=== PATIENT | male | born 1980 | race American Indian/Alaskan Native ===

== ENCOUNTER 2017-04-05 16:23 | Inpatient (IN) | payer OTHER ==
[2017-04-05 17:08] LABS: Basophils % (Auto) 0.9 % (0.0-1.8); Eosinophils % (Auto) 2.1 % (0.0-4.3); Hematocrit 42.6 % (35.5-45.6); Hemoglobin 14.3 gm/dl (11.8-15.2); Mean Corpuscular HGB Conc 34 % (32-34); Mean Corpuscular Hemoglobin 30 pg (28-32); Mean Corpuscular Volume 88 fl (84-94); Platelet Count 258 K/mm3 (140-440); Red Blood Count 4.86 M/mm3 (3.65-5.03); Red Cell Distribution Width 13.3 % (13.2-15.2)
[2017-04-05 17:19] LABS: INR 0.94 (0.87-1.13)
[2017-04-05 17:20] LABS: Partial Thromboplastin Time 31.8 Sec. (24.2-36.6)
[2017-04-05 17:24] LABS: Anion Gap 18 mmol/L; BUN/Creatinine Ratio 18.75; Blood Urea Nitrogen 15 mg/dL (9-20); Calcium 8.8 mg/dL (8.4-10.2); Carbon Dioxide 25 mmol/L (22-30); Chloride 102.3 mmol/L (98-107); Glucose 89 mg/dL (75-100); Potassium 3.8 mmol/L (3.6-5.0); Sodium 141 mmol/L (137-145)
--- NOTE | 2017-04-05 17:43 | Cat Scan Report ---
FINAL REPORT PROCEDURE: CT HEAD/BRAIN WO CON TECHNIQUE: Computerized tomography of the head was performed without contrast material. HISTORY: neuro deficits \T\lt; 6hrs or sx present upon awakening COMPARISON: No prior studies are available for comparison. FINDINGS: Brain: Brain density appears normal. No evidence of intracranial hemorrhage. No parenchymal hemorrhage, mass lesions or mass effect are seen. No abnormal extraxial fluid collects or masses are seen. Ventricles: Ventricles are normal size and are midline. Bone Windows: No evidence of skull fracture. Paranasal sinuses: Clear Mastoid air cells: Clear IMPRESSION: Negative exam. No acute or focal abnormalities are identified. If clinically indicated MRI of the brain could be obtained for further evaluation.
--- NOTE | 2017-04-05 23:49 | Emergency Department Report ---
ED Neuro Deficit HPI - General Chief Complaint: Neuro Symptoms/Deficit Stated Complaint: LEFT SIDE WEAKNESS Time Seen by Provider: 04/05/17 23:48 Source: patient, RN notes reviewed Mode of arrival: Ambulatory Limitations: No Limitations - History of Present Illness Initial Comments: This is a 36-year-old male. He is previously known to me. He is left-hand dominant. He recently moved here from [place]. His only medical history is tobacco consumption. He denies other medical history. The patient presents to the ER with concern that he woke up with a stroke. He reports that yesterday morning, he woke up with left-sided weakness and numbness in his arm and his leg. The symptoms are constant. They do not have any exacerbating or relieving factors. There is no midline neck pain, there is no chest pain, there is no abdominal pain, there is no bladder or bowel retention or incontinence. There is no saddle anesthesia. No visual disturbance. -: Gradual Location: left arm, right arm Presenting Symptoms: Present: Weak/Paralyzed One Side History of same: No Place: home Severity: moderate Quality: weak, tingling, constant Improves With: none Worsens With: none On Anticoagulants: No Context: gradual onset (patient woke up with symptoms yesterday) Associated Symptoms: denies other symptoms Treatments Prior to Arrival: none - Related Data Home Medications: Previous Rx's Medication Instructions Recorded Last Taken Type Prednisone [predniSONE 10 mg 10 mg PO .TAPER #1 tab.ds.pk 04/09/17 Unknown Rx (6-Day Pack, 21 Tabs)] Allergies/Adverse Reactions: Allergies Allergy/AdvReac Type Severity Reaction Status Date / Time No Known Allergies Allergy Verified 04/05/17 16:39 ED Review of Systems ROS: Stated complaint: LEFT SIDE WEAKNESS Other details as noted in HPI Constitutional: denies: fever, malaise Eyes: denies: vision change ENT: denies: epistaxis Respiratory: denies: cough Cardiovascular: denies: chest pain Gastrointestinal: denies: abdominal pain Genitourinary: denies: dysuria Musculoskeletal: denies: myalgia Skin: denies: lesions Neurological: weakness. denies: abnormal gait ED Past Medical Hx - Past Medical History Previous Medical History?: No - Social History Smoking Status: Current Every Day Smoker Substance Use Type: None - Medications Home Medications: Home Medications Medication Instructions Recorded Confirmed Last Taken Type Prednisone [predniSONE 10 mg 10 mg PO .TAPER #1 tab.ds.pk 04/09/17 Unknown Rx (6-Day Pack, 21 Tabs)] ED Neuro Physical Exam - General Limitations: No Limitations General appearance: alert, in no apparent distress Suspected Stroke: Yes - Head Head exam: Present: atraumatic, normocephalic - Eye Eye exam: Present: normal appearance, PERRL, EOMI, other (visual acuity intact to finger counting, color perception, reading at a close distance). Absent: nystagmus - ENT ENT exam: Present: normal exam, normal orophraynx, mucous membranes moist, normal external ear exam, other (there is no carotid bruit. There is no midline cervical spine tenderness.) - Neck Neck exam: Present: normal inspection, full ROM. Absent: tenderness, meningismus - Respiratory Respiratory exam: Present: normal lung sounds bilaterally. Absent: respiratory distress, wheezes, rales, rhonchi, stridor, chest wall tenderness, accessory muscle use, decreased breath sounds, prolonged expiratory - Cardiovascular Cardiovascular Exam: Present: regular rate, normal rhythm, normal heart sounds. Absent: bradycardia, tachycardia, irregular rhythm, systolic murmur, diastolic murmur, rubs, gallop - GI/Abdominal GI/Abdominal exam: Present: soft, normal bowel sounds. Absent: distended, tenderness, guarding, rebound, rigid, pulsatile mass - Rectal Rectal exam: Present: deferred - Extremities Exam Extremities exam: Present: normal inspection, full ROM, normal capillary refill. Absent: tenderness, pedal edema, joint swelling, calf tenderness - Back Exam Back exam: Present: normal inspection, full ROM. Absent: tenderness, CVA tenderness (R), CVA tenderness (L), muscle spasm, paraspinal tenderness, vertebral tenderness - Neurological Exam Neurological exam: Present: alert, oriented X3, normal gait, motor sensory deficit (there is decreased sensation to light touch and pinprick in the left upper extremity and left lower extremity. Proprioception is intact in the bilateral upper and lower extremity's.), reflexes normal (2+ biceps, triceps, brachioradialis, quadriceps reflexes in the bilateral upper and lower extremities.), other (downgoing plantar reflexes noted bilaterally.) - NIHSS Assessment Interval: Baseline 1a. Level of Consciousness: alert 1b. LOC Questions: answers correctly 1c. LOC Commands: performs tasks correctly 2. Best Gaze: normal 3. Visual: no visual loss 4. Facial Palsy: normal symmetrical movement 5b. Motor Arm Right: no drift 5a. Motor Arm Left: no drift 6a. Motor Leg Left: no drift 6b. Motor Leg Right: no drift 7. Limb Ataxia: absent 8. Sensory: mild/moderate sensory loss 9. Best Language: no aphasia 10. Dysarthria: normal 11. Extinction/Inattention: no abnormality Total Score: 1 Stroke Severity: Minor Stroke - Psychiatric Psychiatric exam: Present: normal affect, normal mood - Skin Skin exam: Present: warm, dry, intact, normal color. Absent: rash ED Course Vital Signs 04/05/17 04/05/17 04/05/17 16:39 21:08 21:30 Temperature 98.5 F Pulse Rate 62 56 L 53 L Respiratory 18 17 20 Rate Blood Pressure 126/90 120/83 O2 Sat by Pulse 100 99 99 Oximetry 04/05/17 04/05/17 04/05/17 22:00 22:30 22:43 Temperature Pulse Rate 55 L 54 L Respiratory 20 20 19 Rate Blood Pressure 119/79 120/79 O2 Sat by Pulse 97 98 99 Oximetry 04/05/17 04/05/17 04/05/17 23:00 23:20 23:30 Temperature Pulse Rate 53 L 53 L 57 L Respiratory 17 14 14 Rate Blood Pressure 126/89 115/89 115/85 O2 Sat by Pulse 95 96 95 Oximetry 04/06/17 04/06/17 04/06/17 00:46 01:00 01:30 Temperature Pulse Rate 50 L 54 L Respiratory 15 18 16 Rate Blood Pressure 115/85 123/87 109/68 O2 Sat by Pulse 98 95 96 Oximetry 04/06/17 02:00 Temperature Pulse Rate 54 L Respiratory 15 Rate Blood Pressure 99/58 O2 Sat by Pulse 96 Oximetry - Lab Data Result diagrams: 04/05/17 16:54 04/05/17 16:54 Lab Results 04/05/17 04/05/17 04/05/17 Range/Units 16:54 16:54 16:54 WBC 6.0 (4.5-11.0) K/mm3 RBC 4.86 (3.65-5.03) M/mm3 Hgb 14.3 (11.8-15.2) gm/dl Hct 42.6 (35.5-45.6) % MCV 88 (84-94) fl MCH 30 (28-32) pg MCHC 34 (32-34) % RDW 13.3 (13.2-15.2) % Plt Count 258 (140-440) K/mm3 Lymph % (Auto) 34.5 (13.4-35.0) % [place] % (Auto) 10.6 H (0.0-7.3) % Eos % (Auto) 2.1 (0.0-4.3) % Baso % (Auto) 0.9 (0.0-1.8) % Lymph # 2.1 (1.2-5.4) K/mm3 [place] # 0.6 (0.0-0.8) K/mm3 Eos # 0.1 (0.0-0.4) K/mm3 Baso # 0.1 (0.0-0.1) K/mm3 Seg Neutrophils % 51.9 (40.0-70.0) % Seg Neutrophils # 3.1 (1.8-7.7) K/mm3 PT 13.0 (12.2-14.9) Sec. INR 0.94 (0.87-1.13) APTT 31.8 (24.2-36.6) Sec. Thrombin Time (15.1-19.6) Sec. Sodium 141 (137-145) mmol/L Potassium 3.8 (3.6-5.0) mmol/L Chloride 102.3 (98-107) mmol/L Carbon Dioxide 25 (22-30) mmol/L Anion Gap 18 mmol/L BUN 15 (9-20) mg/dL Creatinine 0.8 (0.8-1.5) mg/dL Estimated GFR > 60 ml/min BUN/Creatinine Ratio 18.75 % Glucose 89 (75-100) mg/dL POC Glucose (70-105) Calcium 8.8 (8.4-10.2) mg/dL Troponin T < 0.010 (0.00-0.029) ng/mL 04/05/17 04/05/17 Range/Units 16:54 23:26 WBC (4.5-11.0) K/mm3 RBC (3.65-5.03) M/mm3 Hgb (11.8-15.2) gm/dl Hct (35.5-45.6) % MCV (84-94) fl MCH (28-32) pg MCHC (32-34) % RDW (13.2-15.2) % Plt Count (140-440) K/mm3 Lymph % (Auto) (13.4-35.0) % [place] % (Auto) (0.0-7.3) % Eos % (Auto) (0.0-4.3) % Baso % (Auto) (0.0-1.8) % Lymph # (1.2-5.4) K/mm3 [place] # (0.0-0.8) K/mm3 Eos # (0.0-0.4) K/mm3 Baso # (0.0-0.1) K/mm3 Seg Neutrophils % (40.0-70.0) % Seg Neutrophils # (1.8-7.7) K/mm3 PT (12.2-14.9) Sec. INR (0.87-1.13) APTT (24.2-36.6) Sec. Thrombin Time 17.2 (15.1-19.6) Sec. Sodium (137-145) mmol/L Potassium (3.6-5.0) mmol/L Chloride (98-107) mmol/L Carbon Dioxide (22-30) mmol/L Anion Gap mmol/L BUN (9-20) mg/dL Creatinine (0.8-1.5) mg/dL Estimated GFR ml/min BUN/Creatinine Ratio % Glucose (75-100) mg/dL POC Glucose 79 (70-105) Calcium (8.4-10.2) mg/dL Troponin T (0.00-0.029) ng/mL - EKG Data -: EKG Interpreted by [place] EKG shows normal: sinus rhythm, axis, intervals Rate: bradycardia When compared to previous EKG there are: previous EKG unavailable 04/06/17 01:08 sinus bradycardia, 50 bpm, normal intervals, normal axis, incomplete right bundle branch block, not morphologically consistent with STEMI. There is no prior for comparison. - Radiology Data Radiology results: report reviewed, image reviewed Noncontrast CT scan of the brain is negative for acute disease - Medical Decision Making Differential diagnosis: Stroke, cervical radiculopathy, multiple sclerosis assessment and plan: 36-year-old male who woke up yesterday with left-sided subjective weakness and numbness. He has a GCS of 15, with an NIH score of 1. Patient woke up with symptoms, therefore he is not a TPA candidate. Reflexes, strength intact, walks with a steady gait, very unlikely to be epidural compression syndrome. Patient given aspirin, he declines pain medication, case is presented to the Hospital physician, Dr. Eduardo, who accepts the patient to her service. - Core Measures Measure Exclusions: not indicated - Thrombolytic Inclusion/Exclusion Thrombolytic Exclusion Criteria: Symptom Onset > 3 Hours Critical care attestation.: If time is entered above; I have spent that time in minutes in the direct care of this critically ill patient, excluding procedure time. ED Disposition Clinical Impression: Left sided numbness Disposition: [id number] OP ADMIT IP TO THIS HOSP Is pt being admited?: Yes Does the pt Need Aspirin: Yes Condition: Good
[2017-04-06] MEDS ORDERED: BABY ASPIRIN PO ONE
[2017-04-06] MEDS ORDERED: ZOFRAN IV PRN (00:38)
[2017-04-06] MEDS ORDERED: SODIUM CHLORIDE FLUSH SYRINGE 10 ML IV PRN (00:38)
[2017-04-06] MEDS ORDERED: DULCOLAX PR PRN (00:38)
[2017-04-06] MEDS ORDERED: TYLENOL PO PRN (00:38)
[2017-04-06] MEDS ORDERED: MILK OF MAGNESIA PO PRN (00:38)
--- NOTE | 2017-04-06 00:38 | History and Physical Report ---
History of Present Illness Date of examination: 04/06/17 History of present illness: 36-year-old man with no medical problems comes emergency room because he developed left-sided paresthesia and weakness at 4 AM. His symptoms still persistent Review of systems Constitutional: no fever, no chills, no weight loss Ears, eyes, nose, mouth and throat: no nasal congestion, no nasal discharge, no sinus pressure, no vision change, no red eye. Neck: No neck pain or rigidity. Cardiovascular: chest pain, no orthopnea, no palpitations, no leg swelling Respiratory: No shortness of breath, no cough, no congestion, no wheezing Gastrointestinal: abdominal pain, hematochezia, no nausea, no vomiting Genitourinary : no dysuria, frequency , no hematuria Musculoskeletal: no joint swelling or muscle ache Integumentary: no rash, no pruritis Neurological:slurred speecg Endocrine: no cold or heat intolerance, no polyuria or polydipsia Hematologic/Lymphatic: no easy bruising, no easy bleeding, no gland swelling Allergic/Immunologic: no urticaria, no angioedema. PAST MEDICAL HISTORY:None PAST SURGICAL HISTORY:None FAMILY HISTORY:hypertension SOCIAL HISTORY: Smoke a pack a week, no alcohol or drug Medications and Allergies Allergies Allergy/AdvReac Type Severity Reaction Status Date / Time No Known Allergies Allergy Verified 04/05/17 16:39 Home Medications Medication Instructions Recorded Confirmed Last Taken Type No Known Home Medications [No 04/05/17 04/05/17 Unknown History Reported Home Medications] Exam - Physical Exam Narrative exam: Gen. appearance: Patient lying in bed, no apparent distress HEENT: Normocephalic, atraumatic, pupils equally round and reactive to light, extraocular movement intact, and no sclericterus,. No JVD or thyromegaly or nodule,neck supple, no carotid bruit ,mucous membranes moist, no exudate or erythema Heart: S1, S2, regular rate and rhythm Lungs: Clear to auscultation bilaterally, breathing comfortable Abdomen: Positive bowel sounds, nontender, nondistended, no organomegaly Extremity: No edema, cyanosis, clubbing Skin: No rash, nodules, warm, dry Neuro: Oriented 3, cranial nerves II-12 intact, speech is fluent, motor 4/5 on LUE, otherwise normal, decrease sensation in LUE - Constitutional Vitals: Temp Pulse Resp BP Pulse Ox 98.5 F 57 L 14 115/85 95 04/05/17 16:39 04/05/17 23:30 04/05/17 23:30 04/05/17 23:30 04/05/17 23:30 Results - Labs CBC & Chem 7: 04/05/17 16:54 04/05/17 16:54 Labs: Abnormal lab results 04/05/17 Range/Units 16:54 [place] % (Auto) 10.6 H (0.0-7.3) % - Imaging and Cardiology CT Scan - head: report reviewed Assessment and Plan Assessment Left-sided paresthesia with weakness, rule out multiple sclerosis, CVA less likely Plan Admit to medicine Do neurochecks, swallow screen Obtain MRI of the head, carotid Doppler, consult neurology Start aspirin, statin, check lipid profile Start DVT prophylaxis
[2017-04-06 01:46] LABS: Creatine Kinase 134 units/L (55-170)
[2017-04-06 01:49] LABS: Creatine Kinase MB < 1.0 ng/mL (0.0-4.0)
--- NOTE | 2017-04-06 02:05 | Admit Criteria Form ---
Admission Criteria Documentation: NEUROLOGY GRG Clinical Indications for Admission to Inpatient Care (Place ' X' for any and all applicable criteria): Hospital admission is needed for appropriate care of the patient because of 1 or more of the following: [ ]I. Encephalitis [ ]II. Severe [employer] infections indicated by 1 or more of the following(1)(2)(3) : [ ]a) Intracranial abscess [ ]b) Spinal abscess or myelitis [ ]c) Tuberculous or other nonbacterial, nonviral [employer] infection(8) [ ]III. Vasculitis and 1 or more of the following(14)(15): []a) Altered mental status that is severe or persistent or other acute neurologic change []b) Psychosis []c) Seizure [ ]IV. Status epilepticus or repetitive seizures not controlled with emergent treatment [A] (7)(8) [ ]V. Altered mental status that is severe or persistent [ ]. Transient alteration in consciousness with high-risk etiology; examples include (12)(13): [ ]a) Cardiovascular source [ ]b) Cataplexy [ ]VII. Cerebral aneurysm requiring ANY ONE of the following(14): [ ]a) IV antihypertensives or vasoactive agents [ ]b) Sedation and analgesia for suspected leak [ ]c) Need for external ventricular drainage and cerebral perfusion pressure monitoring [ ]d) Emergent evaluation to determine need for surgical clipping or endovascular coiling by interventional radiology. If surgery is required ( Also use Craniotomy, Supratentorial, for Surgery of Bleeding Intracranial Aneurysm (for bleeding aneurysm) or Craniotomy, Supratentorial (for nonbleeding aneurysm) as appropriate. [X ]VIII. New-onset severe neurologic symptom requiring inpatient care indicated by ANY ONE of the following: [ ]a) Aphasia(15) [ ]b) Weakness (grade 3 or less) [ ]c) Paralysis (eg, hemiplegia) [ ]d) Spasticity(16) [ ]e) Dystonia [ ]e) Ataxia(17) [ ]f) Amnesia(18) [ ]g) Involuntary movements(19) [ ]h) Vertigo [ ] Visual loss [ X]i) Other severe neurologic finding (eg, papilledema, mass effect on imaging, myoclonus not treatable at alternative level of care (eg, observation care) [ ]IX. Guillain-[place] syndrome(20) [ ]X. Myasthenia gravis crisis or inpatient monitoring need as indicated by 1 or more of the following(21): [ ]a) Intensive treatment (eg, course of plasmapheresis) with inadequate outpatient situation to monitor patients status [ ]b) Inadequate airway protection [ ]c) Respiratory insufficiency requiring intubation or inpatient. monitoring [ ]d) Progressive dysphagia with failure to thrive [ ]XI. Multiple sclerosis or other acute demyelinating disease requiring inpatient care as indicated by 1 or more of the following (22)(23): [ ]a) Acute severe deterioration requiring inpatient treatment (eg, IV steroids, plasmapheresis, close observation) [ ]b) Acute complication requiring inpatient care (eg, sepsis, severe decubitus, aspiration) [ ]XII.Parkinson disease requiring inpatient care (Also use Optimal Recovery Care Criteria or General Recovery Criteria as appropriate) indicated by 1 or more of the following(25): [ ]a) Infection (eg, aspiration pneumonia) not treatable at alternative level of care [ ]b Dehydration that is severe or persistent [ ]c) Life-threatening agitation or psychotic behavior not treatable on emergency, observation care, or alternative level (eg, residential) basis [ ]d) Severe medication withdrawal effects (eg, freezing, neuroleptic malignant syndrome) not responsive to emergency and observation care treatment ( as appropriate) [ ]e) Other severe manifestation not treatable at alternative level of care [ ]XII. Amyotrophic lateral sclerosis with inpatient care needs as indicated by ANY ONE of the following(26): [ ]a) Acute complications (eg, aspiration pneumonia, sepsis ) requiring inpatient care ( see other optimal Recovery Guideline as appropriate) [ ]b) Dehydration that is severe persistent AND artificial support desired [ ]c) Inadequate airway protection AND artificial support desired [ ]d) Severe ventilatory insufficiency AND artificial support desired [ ]XIII. Myasthenia gravis crisis or inpatient monitoring need as indicated by 1 or more of the following(21): [] a) Inadequate airway protection []b) Respiratory insufficiency requiring intubation or inpatient monitoring []c) Progressive dysphagia with failure to thrive []d) Intensive treatment (e.g., course of plasmapheresis) with inadequate outpatient situation to monitor patients status [ ]XIV. Multiple sclerosis or other acute demyelinating disease requiring inpatient care indicated by 1 or more of the following[C](36)(43)(44)(45)(46): []a) Acute severe deterioration requiring inpatient treatment (eg, IV steroids, plasmapheresis, close observation) []b) Acute complication requiring inpatient care (eg, sepsis, severe decubitus, aspiration) [ ]XV. Intracranial hypertension (e.g., pseudotumor cerebri) requiring inpatient care (e.g., acute visual loss, inadequate oral intake) (47)(48)(49) [ ]XVI. Parkinson disease requiring inpatient care (Also use Optimal Recovery Care Criteria or General Recovery Criteria as appropriate) indicated by 1 or more of the following(25): [] a) Infection (e.g., aspiration pneumonia) not treatable at alternative level of care []b) Volume depletion not responsive to emergency and observation care treatment (as appropriate) []c) Life-threatening agitation or psychotic behavior not treatable on emergency, observation care, or alternative level (e.g., residential) basis []d) Severe medication withdrawal effects (e.g., freezing, neuroleptic malignant syndrome) not responsive to emergency and observation care treatment (as appropriate) []e) Other severe manifestation not treatable at alternative level of care [ ]XVII. Amyotrophic lateral sclerosis with inpatient care needs as indicated by1 or more of the following(42): []a) Acute complications (eg, aspiration pneumonia, sepsis) requiring inpatient care (see other Optimal Recovery Guideline or General Recovery Guideline as appropriate) []b) Dehydration that is severe or persistent AND artificial support desired []c) Inadequate airway protection AND artificial support desired []d) Severe ventilatory insufficiency AND artificial support desired [ ]XVIII. Severe myopathy, neuropathy, or other neuromuscular disease indicated by 1 or more of the following(42)(52)(53)(54): []a ) New-onset severe diffuse weakness (eg, strength 3/5 or less) []b) Severe dysphagia []c) Dyspnea at rest or with minimal exertion (new) []d) Inadequate airway protection []e) Inadequate ventilation indicated by 1 or more of the following : i) Partial pressure of carbon dioxide greater than 44 mm Hg ( 5.9 kPa) (new) ii) Reduced peak expiratory flow rate (new) iii) Vital capacity less than 50% of predicted (less than 15 mL/kg) iv) Peak inspiratory force less negative than -30 cm H2O (- 2942 Pa) [ ]XVII.Complications of congenital or degenerative disease (eg, infection, seizures, dehydration, injury) not responsive to emergency and observation care treatment (as appropriate ) [C](16)(29)(30) [ ]XVIII.Suspected or confirmed nerve or muscle toxic injury, including ANY ONE of the following: [ ]a) Rhabdomyolysis(31) i) Acute renal failure ii) Dehydration that is severe or persistent iii) Altered mental status that is severe or persistent iv) Electrolyte abnormality that remains after emergency or observation level care ( as appropriate) [ ]b) Botulism(32) [ ]c) Other severe toxin-induced sign or symptom [ ]XIX. Neurologic trauma requiring inpatient treatment (medical) indicated by ANY ONE of the following(33)(34): [ ]a) Vital signs or neurologic signs more frequently than every 4 hours [ ]b) Hyperosmolar therapy [ ]c) Respiratory monitoring [ ]d) Intracranial pressure monitoring and treatment [ ]e) Stabilization and immobilization device placement (eg, braces, body jacket) [ ]f) Intubation & mechanical ventilation for airway protection or therapeutic hyperventilation [ ]g) Other treatment or monitoring needed that requires inpatient level of care [ ]XX.Complications of neurologic devices (eg, ventricular shunt, neurostimulator) requiring 1 or more of the following(35)(36): [ ]a) IV antibiotics with monitoring while awaiting culture results [ ]b) Monitoring for hydrocephalus [ ]XXI. Neurology condition symptom, or finding for which emergency and observation care have failed or are not considered appropriate. See General Criteria: Observation Care ISC, General Admission Criteria GRG, or Pediatric General Admission Criteria GRG guideline as appropriate. The original [facility] [employer] content created by [employer] has been revised. The portions of the content which have been revised are identified through the use of italic text or in bold, and [facility] has neither reviewed nor approved the modified material. All other unmodified content is copyright [facility] Please see references footnoted in the original [facility] edition 2016 Admission Criteria Met: Yes
[2017-04-06 07:50] LABS: Creatine Kinase MB < 1.0 ng/mL (0.0-4.0)
[2017-04-06 07:51] LABS: Creatine Kinase 118 units/L (55-170)
[2017-04-06] MEDS ORDERED: LOVENOX SUB-Q SCH (10:00)
--- NOTE | 2017-04-06 11:44 | Magnetic Resonance Report ---
MRI BRAIN WITHOUT CONTRAST INDICATION: Stroke. COMPARISON: Yesterday's head CT. FINDINGS: Noncontrast multiplanar and multisequence MRI of the brain demonstrates normal ventricles and sulci without acute infarct, hemorrhage, mass effect or midline shift. Numerous white matter and slight periventricular FLAIR and T2 weighted hyperintensities, greatest in centrum semiovale with a dominant confluent/curvilinear lesion measuring approximately 2.3 x 0.6 cm right parietal, axial series 7, image 19, presumed small vessel ischemic disease though unexpected for a patient of this age with other possibilities as demyelination not entirely excluded at this time. No abnormal extra-axial masses or fluid collections. Normal major intracranial vascular flow voids. Normal posterior fossa structures with symmetric seventh and eighth nerve complexes. Symmetric, grossly unremarkable eye globes. Mild ethmoid sinusitis, left more than right. Clear remainder imaged paranasal sinuses and mastoid air cells. Normal midline structures without evidence of Chiari malformation. CONCLUSION: No acute intracranial MRI abnormality, though numerous white matter foci noted, unusual/abnormal for a patient of this age, as detailed above. Please correlate. Thank you for the opportunity to participate in this patient's care.
--- NOTE | 2017-04-06 12:55 | Cat Scan Report ---
CT CERVICAL SPINE WITHOUT CONTRAST INDICATION: Numbness of upper extremities. COMPARISON: None similar. FINDINGS: Noncontrast axial, sagittal and coronal CT reconstructions through the cervical spine demonstrate normal intracranial appearance. Clear imaged paranasal sinuses and mastoid air cells. Assessment of the spinal canal itself compromised from C6 inferiorly due to artifact from shoulder soft tissues. Intact craniocervical articulation, dens, predental space, prevertebral soft tissues and posterior elements. Normal vertebral body stature and alignment, allowing for C5 and C6 degenerative spurring. C5-C6 moderate disc narrowing as well. Normal remained disc heights. Approximately 1.2 cm right thyroid lobe hypodensity. Clear imaged lung apices. On the obtained axial images: C4-C5 demonstrate slight central disc protrusion. AP cord caliber approximately 9 mm. C5-C6 demonstrates diffuse degenerative spurring, greatest right uncovertebral with moderate right and mild left neural foraminal narrowing. Diffuse disc bulge also noted, greatest right paracentral, indenting the ventral hemicord, more so on the right. AP cord caliber is approximately 6-7 mm, axial image 57, series 3. CONCLUSION: C5-C6 degenerative changes, as detailed above. Neurologic territorial correlation may also be obtained. Thank you for the opportunity to participate in this patient's care.
[2017-04-06] MEDS: LOVENOX SUB-Q SCH (15:34)
[2017-04-06] MEDS: ASPIRIN PO SCH (15:34)
--- NOTE | 2017-04-06 15:43 | Event Note ---
Date: 04/06/17 patient seen and examined, although reports some improvement still with parasthesia left upper and lower ext. No Cervical tenderness. AWAIT CT neck. Will need stress test in am and Neuro eval for possible demylinating disease.
[2017-04-06] MEDS: ZOCOR PO SCH (21:56)
[2017-04-07] MEDS ORDERED: LEXISCAN IV ONE ×2 (09:49→09:50)
--- NOTE | 2017-04-07 11:22 | Consultation ---
History of Present Illness Consult date: 04/07/17 Requesting physician: KAILEY HARRISON Reason for Consult: demyelinating disease Chief complaint: L side numb/tingling History of present illness: 36 YO M no medical Hx p/w acute onset L sided numbness and tingling and weakness. Sx began 04/05 approx 3 Pm and are progressively worsening. There are no aggravating, relieving or temporal factors. Severity causing some difficulty using the dominant L hand. Past History Past Medical History: No medical history Past Surgical History: No surgical history Social history: lives with family. denies: smoking, alcohol abuse, prescription drug abuse Family history: no significant family history Medications and Allergies Allergies Allergy/AdvReac Type Severity Reaction Status Date / Time No Known Allergies Allergy Verified 04/05/17 16:39 Home Medications Medication Instructions Recorded Confirmed Last Taken Type No Known Home Medications [No 04/05/17 04/05/17 Unknown History Reported Home Medications] Active Meds: Active Medications Acetaminophen (Tylenol) 650 mg PO Q4H PRN PRN Reason: Pain, Mild (1-3) Last Admin: 04/06/17 20:34 Dose: 650 mg Aspirin (Aspirin) 325 mg PO QDAY [facility] Last Admin: 04/06/17 15:34 Dose: 325 mg Bisacodyl (Dulcolax) 10 mg LA QDAY PRN PRN Reason: Constipation Enoxaparin Sodium (Lovenox) 40 mg SUB-Q QDAY@1000 [facility] Last Admin: 04/06/17 15:34 Dose: 40 mg Magnesium Hydroxide (Milk Of Magnesia) 30 ml PO Q4H PRN PRN Reason: Constipation Ondansetron HCl (Zofran) 4 mg IV Q8H PRN PRN Reason: N/V unrelieved by Reglan Simvastatin (Zocor) 20 mg PO QHS [facility] Last Admin: 04/06/17 21:56 Dose: 20 mg Sodium Chloride (Sodium Chloride Flush Syringe 10 Ml) 10 ml IV PRN PRN PRN Reason: LINE FLUSH Review of Systems All systems: negative Neurological: weakness, parathesias, numbness, tingling, gait dysfunction, motor disturbance, sensory deficit, no head injury, no seizures, no syncope, no headaches, no convulsions, no change in speech, no confusion, no double vision Physical Examination - Vital Signs Vital Signs: Vital Signs Temp Pulse Resp BP Pulse Ox 98.5 F 62 18 126/90 100 04/05/17 16:39 04/05/17 16:39 04/05/17 16:39 04/05/17 16:39 04/05/17 16:39 - Constitutional General appearance: comfortable - EENT EENT: Present: ATNC, PERRL, mucous membranes moist, hearing intact, vision intact - Respiratory Respiratory: Present: chest non-tender, normal breath sounds, no respiratory distress - Cardiovascular Cardiovascular: Present: regular rate Extremities: Present: no peripheral edema bilatateraly, no clubbing, cyanosis, no inflammation, no ischemia or petechiae - Gastrointestinal Gastrointestinal: Present: normoactive bowel sounds, soft, non-distended - Integumentary Integumentary: Present: normal - Neurologic Cranial nerve examination: PERRL, EOMI, VFF, V1/V2/V3 grossly intact, face symmetric, tongue midline, intact, intact shoulder shrug, Intact Vestibulo- ocular r, intact corneal reflex, normal palatal elevation Speech examination: intact Sensorimotor examination: intact Detailed motor examination: other (fine motor L sided weakness) Motor examination - right side: 5/5: biceps, triceps, wrist flexion, wrist extension, meat grinder, hip flexors, knee extensors, dorsiflexion, toe extension (EHL) , plantarflexion Motor examination - left side: 5/5: biceps, triceps, wrist flexion, wrist extension, meat grinder, hip flexors, knee extensors, dorsiflexion, toe extension (EHL) , plantarflexion Detailed sensory examination: light touch (decr on L), temperature (decr on L) Reflexes: 2+: ankle, bicep, knee, tricep - Musculoskeletal Musculoskeletal: Present: no fluid collection, no pain - Psychiatric Psychiatric: Present: mood/affect appropriate, cooperative Results - Laboratory Findings CBC and BMP: 04/05/17 16:54 04/05/17 16:54 Abnormal Lab Findings: Abnormal Labs 04/07/17 06:46 Triglycerides 227 H HDL Cholesterol 33 L Assessment and Plan 36 YO M no medical Hx p/w progressive L sided numbness/tingling/fine motor weakness. MRI brain w/o Elliott reveals diffuse multifocal deep white matter T2 hyperintensities appearing consistent with demyelinating disease e.g. MS. He otherwise has no complaints or findings on exam with normal vital signs. Recs: 1. Neuro checks 2. MRI Brain + Elliott and MRI C-spine +/- Elliott 3. Serum labs: FRITZ, RF, HUNTER, HIV, B12 4. Solumedrol 1g IV QDay x 3 days 5. Outpt neuro follow up has been advised to the patient ofelia for repeat MRIs and clinical surveillance
[2017-04-07 13:38] LABS: HIV-1 Antigen p24 Non React (Non React); HIVR-1/2 Ab Non React (Non React)
[2017-04-07] MEDS: ASPIRIN PO SCH (14:45)
[2017-04-07] MEDS: LOVENOX SUB-Q SCH (14:45)
--- NOTE | 2017-04-07 14:52 | Progress Note ---
Assessment and Plan Assessment and plan: Incidentally noted old male with no significant past medical history we'll presents to the hospital with complaint of progressive left-sided numbness and tingling with some mild weakness for about 3-4 days. It is not affected by change in position of the neck and would not associated headache or visual disturbance. Patient proceeded to have an MRI which showed diffuse multifocal deep white matter T2 hyperintensity appearing consistent with demyelinating disease. She also reported chest pain at the same time with this which he rates at 3/10 intensity with no aggravating or Levitra factors. Denies any shortness of breath popping or PND. Left upper and lower extremity paresthesia Atypical chest pain Plan Continue supportive care, agree with solumedrol x 3 days Await, stress test Await MRI brain with carolee FOLLOW FRITZ, RF, HUNTER, HIV, B12 dvt/gi prophy plan of care discussed in detail with the team. History Interval history: Patient seen and examined reports persistence of left upper extremity tingling and numbness. Hospitalist Physical - Physical exam Narrative exam: VITAL SIGNS: Reviewed. GENERAL: The patient appeared well nourished and normally developed. Vital signs as documented. HEAD: No signs of head trauma. EYES: Pupils are equal. Extraocular motions intact. EARS: Hearing grossly intact. MOUTH: Oropharynx is normal. NECK: No adenopathy, no JVD. CHEST: Chest with clear breath sounds bilaterally. No wheezes, rales, or rhonchi. CARDIAC: Regular rate and rhythm. S1 and S2, without murmurs, gallops, or rubs. VASCULAR: No Edema. Peripheral pulses normal and equal in all extremities. ABDOMEN: Soft, without detectable tenderness. No sign of distention. No rebound or guarding, and no masses palpated. Bowel Sounds normal. MUSCULOSKELETAL: Good range of motion of all major joints. Extremities without clubbing, cyanosis or edema. NEUROLOGIC EXAM: Alert and oriented x 3. Paresthesia left upper extremity otherwise no strength deficits noted Speech normal. Follows commands. PSYCHIATRIC: Mood normal. SKIN: No rash or lesions. - Constitutional Vitals: Temp Pulse Resp BP Pulse Ox 98.0 F 68 18 106/57 100 04/07/17 13:46 04/07/17 13:46 04/07/17 13:46 04/07/17 13:46 04/07/17 13:46 Results - Labs CBC & Chem 7: 04/05/17 16:54 04/05/17 16:54 Labs: Laboratory Last Values WBC 6.0 K/mm3 (4.5-11.0) 04/05/17 16:54 RBC 4.86 M/mm3 (3.65-5.03) 04/05/17 16:54 Hgb 14.3 gm/dl (11.8-15.2) 04/05/17 16:54 Hct 42.6 % (35.5-45.6) 04/05/17 16:54 MCV 88 fl (84-94) 04/05/17 16:54 MCH 30 pg (28-32) 04/05/17 16:54 MCHC 34 % (32-34) 04/05/17 16:54 RDW 13.3 % (13.2-15.2) 04/05/17 16:54 Plt Count 258 K/mm3 (140-440) 04/05/17 16:54 Lymph % (Auto) 34.5 % (13.4-35.0) 04/05/17 16:54 [place] % (Auto) 10.6 % (0.0-7.3) H 04/05/17 16:54 Eos % (Auto) 2.1 % (0.0-4.3) 04/05/17 16:54 Baso % (Auto) 0.9 % (0.0-1.8) 04/05/17 16:54 Lymph # 2.1 K/mm3 (1.2-5.4) 04/05/17 16:54 [place] # 0.6 K/mm3 (0.0-0.8) 04/05/17 16:54 Eos # 0.1 K/mm3 (0.0-0.4) 04/05/17 16:54 Baso # 0.1 K/mm3 (0.0-0.1) 04/05/17 16:54 Seg Neutrophils % 51.9 % (40.0-70.0) 04/05/17 16:54 Seg Neutrophils # 3.1 K/mm3 (1.8-7.7) 04/05/17 16:54 PT 13.0 Sec. (12.2-14.9) 04/05/17 16:54 INR 0.94 (0.87-1.13) 04/05/17 16:54 APTT 31.8 Sec. (24.2-36.6) 04/05/17 16:54 Thrombin Time 17.2 Sec. (15.1-19.6) 04/05/17 16:54 Sodium 141 mmol/L (137-145) 04/05/17 16:54 Potassium 3.8 mmol/L (3.6-5.0) 04/05/17 16:54 Chloride 102.3 mmol/L (98-107) 04/05/17 16:54 Carbon Dioxide 25 mmol/L (22-30) 04/05/17 16:54 Anion Gap 18 mmol/L 04/05/17 16:54 BUN 15 mg/dL (9-20) 04/05/17 16:54 Creatinine 0.8 mg/dL (0.8-1.5) 04/05/17 16:54 Estimated GFR > 60 ml/min 04/05/17 16:54 BUN/Creatinine Ratio 18.75 % 04/05/17 16:54 Glucose 89 mg/dL (75-100) 04/05/17 16:54 POC Glucose 79 (70-105) 04/05/17 23:26 Calcium 8.8 mg/dL (8.4-10.2) 04/05/17 16:54 Total Creatine Kinase 118 units/L (55-170) 04/06/17 06:53 CK-MB (CK-2) < 1.0 ng/mL (0.0-4.0) 04/06/17 06:53 CK-MB (CK-2) Rel Index 0.8 (0-4) 04/06/17 06:53 Troponin T < 0.010 ng/mL (0.00-0.029) 04/06/17 06:53 Triglycerides 227 mg/dL (2-149) H 04/07/17 06:46 Cholesterol 164 mg/dL (50-199) 04/07/17 06:46 LDL Cholesterol Direct 86 mg/dL (50-130) 04/07/17 06:46 HDL Cholesterol 33 mg/dL (40-59) L 04/07/17 06:46 Cholesterol/HDL Ratio 4.96 % 04/07/17 06:46 Vitamin B12 464.1 pg/mL (211-911) 04/07/17 11:30 Rheumatoid Factor < 10 IU/ml (0-13) 04/07/17 11:30 HIV 1&2 Antibody Rapid Non react (Non React) 04/07/17 11:30 HIV P24 Antigen Non react (Non React) 04/07/17 11:30 - Imaging and Cardiology MRI - head: image reviewed (demyelinating disease evidence)
[2017-04-07] MEDS: ZOCOR PO SCH (21:41)
[2017-04-08] MEDS ORDERED: MAGNESIUM SULFATE 1 GM in NACL 0.9% 50 ML IV ONE (01:45)
--- NOTE | 2017-04-08 04:19 | Treadmill Report ---
Resting myocardial perfusion images revealed homogeneous radioisotope activity throughout the myocardium. On post-Lexiscan images revealed similar uptake. Gated scan revealed no segmental motion abnormality. Ejection fraction of left ventricle was 63%. IMPRESSION: This test is negative for ischemia. JOB# [id number] JOSE J/NTS
[2017-04-08] MEDS: ASPIRIN PO SCH (13:40)
[2017-04-08] MEDS: LOVENOX SUB-Q SCH (13:40)
--- NOTE | 2017-04-08 15:35 | Progress Note ---
Assessment and Plan Assessment and plan: Incidentally noted old male with no significant past medical history we'll presents to the hospital with complaint of progressive left-sided numbness and tingling with some mild weakness for about 3-4 days. It is not affected by change in position of the neck and would not associated headache or visual disturbance. Patient proceeded to have an MRI which showed diffuse multifocal deep white matter T2 hyperintensity appearing consistent with demyelinating disease. She also reported chest pain at the same time with this which he rates at 3/10 intensity with no aggravating or Levitra factors. Denies any shortness of breath popping or PND. Left upper and lower extremity paresthesia possible MS Atypical chest pain Plan Continue supportive care, agree with solumedrol x 3 days stress test negative. Await MRI brain with carolee FOLLOW FRITZ, RF, HUNTER, HIV, B12 dvt/gi prophy plan of care discussed in detail with the Patient. History Interval history: Patient seen and examined reports Improvement in left upper extremity parasthesia. Hospitalist Physical - Physical exam Narrative exam: VITAL SIGNS: Reviewed. GENERAL: The patient appeared well nourished and normally developed. Vital signs as documented. HEAD: No signs of head trauma. EYES: Pupils are equal. Extraocular motions intact. EARS: Hearing grossly intact. MOUTH: Oropharynx is normal. NECK: No adenopathy, no JVD. CHEST: Chest with clear breath sounds bilaterally. No wheezes, rales, or rhonchi. CARDIAC: Regular rate and rhythm. S1 and S2, without murmurs, gallops, or rubs. VASCULAR: No Edema. Peripheral pulses normal and equal in all extremities. ABDOMEN: Soft, without detectable tenderness. No sign of distention. No rebound or guarding, and no masses palpated. Bowel Sounds normal. MUSCULOSKELETAL: Good range of motion of all major joints. Extremities without clubbing, cyanosis or edema. NEUROLOGIC EXAM: Alert and oriented x 3. Paresthesia left upper extremity otherwise no strength deficits noted, improving, Speech normal. Follows commands. PSYCHIATRIC: Mood normal. SKIN: No rash or lesions. - Constitutional Vitals: Temp Pulse Resp BP Pulse Ox 98.6 F 76 18 141/76 98 04/08/17 12:00 04/08/17 12:00 04/08/17 12:00 04/08/17 12:00 04/08/17 12:00 Results - Labs CBC & Chem 7: 04/05/17 16:54 04/05/17 16:54 Labs: Laboratory Last Values WBC 6.0 K/mm3 (4.5-11.0) 04/05/17 16:54 RBC 4.86 M/mm3 (3.65-5.03) 04/05/17 16:54 Hgb 14.3 gm/dl (11.8-15.2) 04/05/17 16:54 Hct 42.6 % (35.5-45.6) 04/05/17 16:54 MCV 88 fl (84-94) 04/05/17 16:54 MCH 30 pg (28-32) 04/05/17 16:54 MCHC 34 % (32-34) 04/05/17 16:54 RDW 13.3 % (13.2-15.2) 04/05/17 16:54 Plt Count 258 K/mm3 (140-440) 04/05/17 16:54 Lymph % (Auto) 34.5 % (13.4-35.0) 04/05/17 16:54 [place] % (Auto) 10.6 % (0.0-7.3) H 04/05/17 16:54 Eos % (Auto) 2.1 % (0.0-4.3) 04/05/17 16:54 Baso % (Auto) 0.9 % (0.0-1.8) 04/05/17 16:54 Lymph # 2.1 K/mm3 (1.2-5.4) 04/05/17 16:54 [place] # 0.6 K/mm3 (0.0-0.8) 04/05/17 16:54 Eos # 0.1 K/mm3 (0.0-0.4) 04/05/17 16:54 Baso # 0.1 K/mm3 (0.0-0.1) 04/05/17 16:54 Seg Neutrophils % 51.9 % (40.0-70.0) 04/05/17 16:54 Seg Neutrophils # 3.1 K/mm3 (1.8-7.7) 04/05/17 16:54 PT 13.0 Sec. (12.2-14.9) 04/05/17 16:54 INR 0.94 (0.87-1.13) 04/05/17 16:54 APTT 31.8 Sec. (24.2-36.6) 04/05/17 16:54 Thrombin Time 17.2 Sec. (15.1-19.6) 04/05/17 16:54 Sodium 141 mmol/L (137-145) 04/05/17 16:54 Potassium 3.8 mmol/L (3.6-5.0) 04/05/17 16:54 Chloride 102.3 mmol/L (98-107) 04/05/17 16:54 Carbon Dioxide 25 mmol/L (22-30) 04/05/17 16:54 Anion Gap 18 mmol/L 04/05/17 16:54 BUN 15 mg/dL (9-20) 04/05/17 16:54 Creatinine 0.8 mg/dL (0.8-1.5) 04/05/17 16:54 Estimated GFR > 60 ml/min 04/05/17 16:54 BUN/Creatinine Ratio 18.75 % 04/05/17 16:54 Glucose 89 mg/dL (75-100) 04/05/17 16:54 POC Glucose 79 (70-105) 04/05/17 23:26 Calcium 8.8 mg/dL (8.4-10.2) 04/05/17 16:54 Magnesium 1.60 mg/dL (1.7-2.3) L 04/08/17 01:00 Total Creatine Kinase 118 units/L (55-170) 04/06/17 06:53 CK-MB (CK-2) < 1.0 ng/mL (0.0-4.0) 04/06/17 06:53 CK-MB (CK-2) Rel Index 0.8 (0-4) 04/06/17 06:53 Troponin T < 0.010 ng/mL (0.00-0.029) 04/06/17 06:53 Triglycerides 227 mg/dL (2-149) H 04/07/17 06:46 Cholesterol 164 mg/dL (50-199) 04/07/17 06:46 LDL Cholesterol Direct 86 mg/dL (50-130) 04/07/17 06:46 HDL Cholesterol 33 mg/dL (40-59) L 04/07/17 06:46 Cholesterol/HDL Ratio 4.96 % 04/07/17 06:46 Vitamin B12 464.1 pg/mL (211-911) 04/07/17 11:30 Rheumatoid Factor < 10 IU/ml (0-13) 04/07/17 11:30 HIV 1&2 Antibody Rapid Non react (Non React) 04/07/17 11:30 HIV P24 Antigen Non react (Non React) 04/07/17 11:30
--- NOTE | 2017-04-08 18:55 | Magnetic Resonance Report ---
FINAL REPORT PROCEDURE: MR BRAIN W CON TECHNIQUE: Magnetic resonance imaging of the brain was performed after the IV injection of paramagnetic contrast. T1 weighted images were obtained in the axial sagittal and coronal planes. No other imaging was obtained. HISTORY: ? active demyelinating disease COMPARISON: Prior CT scan of the brain 04/05/2017 FINDINGS: Signal intensity from the substance of the brain on these T1 contrast-enhanced images show normal enhancement pattern. No masses are identified. Ventricles are normal size and are midline. There is no evidence of intracranial hemorrhage. No abnormal enhancement is seen that would suggest an active demyelinating plaque or mass.. No abnormal extra-axial fluid collections or masses are identified. The corpus callosum region of the foramina magnum appear normal. Empty sella appears to be present, normal variant. Paranasal sinuses and mastoid air cells appear clear. IMPRESSION: No abnormal areas of enhancement are seen. No active demyelinating plaques are seen. Signal intensity from the substance of the brain appears normal. Empty sella, normal variant.
--- NOTE | 2017-04-08 20:42 | Magnetic Resonance Report ---
FINAL REPORT PROCEDURE: MR CERVICAL SPINE WO/W CON TECHNIQUE: Magnetic resonance imaging of the cervical spine was performed using standard pulse sequences without contrast material followed by the IV injection of paramagnetic contrast and further sequences. HISTORY: ? active demyelinating disease COMPARISON: No prior studies are available for comparison. FINDINGS: The signal intensity and height of the vertebral bodies appears normal. No fracture or subluxation is seen. The prevertebral soft tissues appear normal. Region of the foramina magnum appears normal. The caliber of the cord appears normal. No abnormal enhancing lesions are seen in the cord. On the STIR sagittal images there is mild heterogeneous increased T2 signal in the mid cervical cord at the C5-C6 level. I cannot exclude a small amount of gliosis in this area however no enhancement is seen. At this level there is disc space narrowing posterior osteophytic spurring overlying a moderate size asymmetric disc herniation centrally and to the right of midline obscuring the anterior epidural space and mildly compressing the anterior surface of the cord. There is a small central disc protrusion at the C4-5 level obscuring a portion at the anterior epidural space without cord compression or spinal stenosis. Disc spaces are otherwise well maintained. The neural foramina bilaterally appear widely patent. IMPRESSION: Moderate degenerative disc disease C5-C6 level as described with posterior osteophytic ridging and moderate-sized disc protrusion centrally and to the right of midline mildly compressing the anterior surface of the cord. There is subtle increased T2 signal on the STIR sagittal images suggesting mild gliosis. I cannot exclude a demyelinating process in this location however this could be secondary to trauma from chronic disc herniation at this level. No abnormal enhancement is visualized within the cord to suggest an active or acutely inflamed plaque. Small disc protrusion C4-5 level as described. No other abnormalities are seen.
[2017-04-08] MEDS: ZOCOR PO SCH (21:59)
[2017-04-09] MEDS: ASPIRIN PO SCH (11:31)
[2017-04-09] MEDS: LOVENOX SUB-Q SCH (11:32)
--- NOTE | 2017-04-09 11:53 | Discharge Summary ---
Providers - Providers Date of Admission: 04/06/17 00:38 Date of discharge: 04/09/17 Attending physician: KAILEY HARRISON MD 04/06/17 12:39 Consult to Physician [CONS] Routine Consulting Provider: KIP NOBLES Reason For Exam: demylinating disease Place consult to:: [place] Notified:: YES Comment:: PUT ON LIST Primary care physician: [employer] Hospitalization Condition: Good Disposition: DC-01 TO HOME OR SELFCARE Time spent for discharge: 35 MINS Exam - Constitutional Vitals: Temp Pulse Resp BP Pulse Ox 97.8 F 65 20 123/78 96 04/09/17 07:00 04/09/17 07:00 04/09/17 07:00 04/09/17 07:00 04/09/17 07:00 Plan Activity: advance as tolerated, fall precautions Diet: regular Follow up with: PRIMARY CAREMD [Primary Care Provider] - 3-5 Days JAYDON DAVIS MD [Staff Physician] - 7 Days Prescriptions: Prednisone [predniSONE 10 mg (6-Day Pack, 21 Tabs)] 10 mg PO .TAPER #1 tab.ds.pk
[2017-04-09 13:44] VITALS: BP 128/73
--- NOTE | 2017-04-10 13:32 | Vascular Lab Report ---
CAROTID DUPLEX STUDY: RIGHT PSVEDV CCA PROX:[id number] CCA DIST: 9123 ICA PROX: 6525 ICA MID: 5627 ICA DIST: 6127 ECA: 83 VERT: 44 17 LEFT PSVEDV CCA PROX:[id number] CCA DIST: 8422 ICA PROX: 5622 ICA MID: 6529 ICA DIST: 6127 ECA: 58 VERT: 40 12 REASON FOR EXAM: Stroke. COMMENTS ON THE RIGHT: Doppler frequency analysis is consistent with 16 to 49 percent diameter reduction of the internal carotid artery. Minimal amount of plaque is seen. The common carotid artery is patent. The external carotid artery is patent. The vertebral artery has antegrade flow. COMMENTS ON THE LEFT: Doppler frequency analysis is consistent with 16 to 49 percent diameter reduction of the internal carotid artery. Minimal amount of plaque is seen. The common carotid artery is patent. The external carotid artery is patent. The vertebral artery has antegrade flow. IMPRESSION: Less than 50% diameter reduction in the internal carotid arteries bilaterally. Consider repeat carotid artery duplex in 12 months.
== END 2017-04-09 14:59 | disposition home or self-care (01) | DRG 93 ==
LOC: ED 16:23 → 4A 04-06 00:38
PROVIDERS: ADMIT Internal Medicine; ATTEND Internal Medicine
PROC: 4A02XM4 Measurement of Cardiac Total Activity, External Approach (ICD-10-PCS; principal; 2017-04-06)
DX: R20.8 Other disturbances of skin sensation (principal); R53.1 Weakness; F17.210 Nicotine dependence, cigarettes, uncomplicated; R07.89 Other chest pain; Z82.49 Family history of ischemic heart disease and other diseases of the circulatory system
CPT/HCPCS: 36415; 70450; 70551; 70552; 72125; 72156; 78452; 80048; 80061; 82164; 82550; 82553; 82607; 82962; 83735; 84484; 85025; 85610; 85670; 85730; 86038; 86618; 87806; 93005; 93010; 93017; 93306; 93880; 99406; A9502; A9577; J1650; J2785; J2930; J3475; J7050

== ENCOUNTER 2019-05-20 15:39 | Emergency (ER) | payer SELFPAY ==
--- NOTE | 2019-05-20 16:10 | Emergency Department Report ---
Blank Doc - Documentation Documentation: 39-year-old male that presents with left flank pain. This initial assessment/diagnostic orders/clinical plan/treatment(s) is/are subject to change based on patient's health status, clinical progression and re- assessment by fellow clinical providers in the ED. Further treatment and workup at subsequent clinical providers discretion. Patient/guardians urged not to elope from the ED as their condition may be serious if not clinically assessed and managed. Initial orders include: 1- Patient sent to [facility] for further evaluation and treatment 2- UA
[2019-05-20 16:16] VITALS: BP 113/76
[2019-05-20 16:38] LABS: Bilirubin,Urine NEG (Negative); Blood,Urine NEG (Negative); Color,Urine Yellow (Yellow); Mucus,Urine FEW /HPF; Protein,Urine <15 mg/dL mg/dL (Negative); Urobilinogen,Urine < 2.0 mg/dL (<2.0)
[2019-05-20] MEDS ORDERED: TORADOL IM ONE (19:30)
[2019-05-20] MEDS ORDERED: DELTASONE PO ONE (19:30)
--- NOTE | 2019-05-20 19:59 | XRay Report ---
LUMBAR SPINE 3 VIEWS. INDICATION / CLINICAL INFORMATION: low back pain COMPARISON: None available. FINDINGS: BONES / JOINT(S): No acute fracture or subluxation. No significant arthritis. SOFT TISSUES: No significant abnormality. ADDITIONAL FINDINGS: None. Signer Name: Rj Winter MD Signed: 05/20/2019 7:55 PM Workstation Name: [id number]
--- NOTE | 2019-05-20 20:22 | Emergency Department Report ---
ED General Adult HPI - General Chief complaint: Abdominal Pain Stated complaint: LT SIDE PAIN Time Seen by Provider: 05/20/19 16:09 Source: patient Mode of arrival: Ambulatory Limitations: No Limitations - History of Present Illness Initial comments: Patient is a 39-year-old -[place] male with no past medical history who presents to the ED with c/o acute onset persistent nontraumatic low back pain that radiates to the left flank for the last 1 month. Patient states that in the last 12 hours, the pain has worsened especially with movement or palpation or any physical activity. Patient denies dysuria, hematuria, dizziness, fever, chills, diarrhea, nausea and vomiting, chest pain, abdominal pain, testicular pain, traumatic injury, heavy lifting, fall, numbness and tingling or weakness of lower extremities bilaterally, urinary or bowel incontinence and subtle paresthesia. MD Complaint: low back pain -: Gradual, month(s) (1) Location: back (lower back), left Radiation: flank (left) Severity scale (0 -10): 8 Quality: aching, sharp, constant Improves with: none Worsens with: movement Associated Symptoms: denies other symptoms. denies: confusion, chest pain, cough, diaphoresis, fever/chills, headaches, loss of appetite, malaise, nausea/vomiting, rash, seizure, shortness of breath, syncope, weakness Treatments Prior to Arrival: none - Related Data Previous Rx's Medication Instructions Recorded Last Taken Type Prednisone [predniSONE 10 mg 10 mg PO .TAPER #1 tab.ds.pk 04/09/17 Unknown Rx (6-Day Pack, 21 Tabs)] Naproxen [Naprosyn] 500 mg PO Q12H PRN #20 tablet 05/20/19 Unknown Rx tiZANidine [Zanaflex 4mg TAB] 4 mg PO Q8H PRN #21 tablet 05/20/19 Unknown Rx traMADol [Ultram] 50 mg PO Q6HR PRN #12 tablet 05/20/19 Unknown Rx Allergies Allergy/AdvReac Type Severity Reaction Status Date / Time No Known Allergies Allergy Verified 04/05/17 16:39 ED Review of Systems ROS: Stated complaint: LT SIDE PAIN Other details as noted in HPI Constitutional: denies: chills, fever Eyes: denies: eye pain, eye discharge, vision change ENT: denies: ear pain, throat pain Respiratory: denies: cough, shortness of breath, wheezing Cardiovascular: denies: chest pain, palpitations Endocrine: no symptoms reported Gastrointestinal: denies: abdominal pain, nausea, diarrhea Genitourinary: denies: urgency, dysuria Musculoskeletal: back pain, arthralgia, myalgia. denies: joint swelling Skin: denies: rash, lesions Neurological: denies: headache, weakness, paresthesias Psychiatric: denies: anxiety, depression Hematological/Lymphatic: denies: easy bleeding, easy bruising ED Past Medical Hx - Past Medical History Previous Medical History?: No - Surgical History Past Surgical History?: No - Social History Smoking Status: Never Smoker Substance Use Type: None - Medications Home Medications: Home Medications Medication Instructions Recorded Confirmed Last Taken Type Prednisone [predniSONE 10 mg 10 mg PO .TAPER #1 tab.ds.pk 04/09/17 Unknown Rx (6-Day Pack, 21 Tabs)] Naproxen [Naprosyn] 500 mg PO Q12H PRN #20 tablet 05/20/19 Unknown Rx tiZANidine [Zanaflex 4mg TAB] 4 mg PO Q8H PRN #21 tablet 05/20/19 Unknown Rx traMADol [Ultram] 50 mg PO Q6HR PRN #12 tablet 05/20/19 Unknown Rx ED Physical Exam - General Limitations: No Limitations General appearance: alert, in no apparent distress - Head Head exam: Present: atraumatic, normocephalic, normal inspection - Eye Eye exam: Present: normal appearance, PERRL, EOMI Pupils: Present: normal accommodation - ENT ENT exam: Present: normal exam, normal orophraynx, mucous membranes moist, TM's normal bilaterally, normal external ear exam - Neck Neck exam: Present: normal inspection, full ROM - Respiratory Respiratory exam: Present: normal lung sounds bilaterally. Absent: respiratory distress, wheezes, rales, stridor, chest wall tenderness - Cardiovascular Cardiovascular Exam: Present: regular rate, normal rhythm, normal heart sounds. Absent: systolic murmur, diastolic murmur, rubs, gallop - GI/Abdominal GI/Abdominal exam: Present: soft, normal bowel sounds. Absent: tenderness, guarding, rebound, hyperactive bowel sounds, organomegaly - Rectal Rectal exam: Present: deferred - Extremities Exam Extremities exam: Present: normal inspection, full ROM, normal capillary refill - Back Exam Back exam: Present: normal inspection, full ROM, tenderness (palpable lumbosacral paraspinal musculoskeletal moderate tenderness), muscle spasm, paraspinal tenderness - Neurological Exam Neurological exam: Present: alert, oriented X3, CN II-XII intact, normal gait, reflexes normal - Psychiatric Psychiatric exam: Present: normal affect, normal mood - Skin Skin exam: Present: warm, dry, intact, normal color. Absent: rash ED Course Vital Signs 05/20/19 16:14 Temperature 98.8 F Pulse Rate 68 Respiratory 20 Rate Blood Pressure 113/76 O2 Sat by Pulse 98 Oximetry - Reevaluation(s) Reevaluation #1: 05/20/19 20:30 This is a 39-year-old -[place] male with no past medical history who presented to the ED acute onset nontraumatic low back pain for one month. In the ED, patient is alert and oriented 3 and is in distress. Vital signs are stable. Urinalysis is unremarkable with no hematuria or any sign of urinary tract infection. The L-spine x-ray shows no acute fractures or subluxations or degenerative lumbar disc disease. Patient was treated for pain in the ED and on reevaluation, the patient pain is well-controlled with medications. Patient was discharged home on pain medications and muscle relaxants and advised to follow-up with his primary care physician in 5-7 days for reevaluation or return to the ED immediately if symptoms get worse. 05/20/19 20:32 ED Medical Decision Making - Radiology Data Radiology results: report reviewed, image reviewed L-spine x-ray shows no acute fractures, subluxations or degenerative lumbar disc disease - Medical Decision Making This is a 39-year-old -[place] male with no past medical history who presented to the ED acute onset nontraumatic low back pain for one month. In the ED, patient is alert and oriented 3 and is in distress. Vital signs are stable. Urinalysis is unremarkable with no hematuria or any sign of urinary tract infection. The L-spine x-ray shows no acute fractures or subluxations or degenerative lumbar disc disease. Patient was treated for pain in the ED and on reevaluation, the patient pain is well-controlled with medications. Patient was discharged home on pain medications and muscle relaxants and advised to follow-up with his primary care physician in 5-7 days for reevaluation or return to the ED immediately if symptoms get worse. - Differential Diagnosis Muscle spasm; Muscle strain; degenerative lumbar disc disease Critical care attestation.: If time is entered above; I have spent that time in minutes in the direct care of this critically ill patient, excluding procedure time. ED Disposition Clinical Impression: Spasm of muscle of lower back, Strain of muscle, fascia and tendon of lower back, initial encounter Disposition: TO HOME OR SELFCARE Is pt being admited?: No Does the pt Need Aspirin: No Condition: Stable Instructions: Muscle Strain (ED), Muscle Spasm (ED), Acute Low Back Pain (ED) Additional Instructions: Take medications with food, drink plenty of fluids and follow-up with your primary care physician in 5-7 days for reevaluation. Return to the ED immediately if symptoms get worse. Prescriptions: Naproxen [Naprosyn] 500 mg PO Q12H PRN #20 tablet PRN Reason: Pain , Severe (7-10) traMADol [Ultram] 50 mg PO Q6HR PRN #12 tablet PRN Reason: Pain tiZANidine [Zanaflex 4mg TAB] 4 mg PO Q8H PRN #21 tablet PRN Reason: Muscle Spasm Referrals: PRIMARY CARE, [Primary Care Provider] - 3-5 Days Time of Disposition: 20:20 Print Language: ARMENIAN
== END 2019-05-20 20:38 | disposition home or self-care (01) ==
LOC: ED 15:39
DX: S39.012A Strain of muscle, fascia and tendon of lower back, initial encounter (principal); Z79.899 Other long term (current) drug therapy; X58.XXXA Exposure to other specified factors, initial encounter; Y93.89 Activity, other specified; Y92.89 Other specified places as the place of occurrence of the external cause; Y99.8 Other external cause status
CPT/HCPCS: 72100; 81001; 96372; 99284; J1885; J7512